=== PATIENT | female | born 1945 | race Caucasian/White ===

== ENCOUNTER 2016-12-21 12:57 | Emergency (ER) | payer OTHER, BC ==
[2016-12-21 13:05] VITALS: BMI 17.5
--- NOTE | 2016-12-21 14:02 | PDOC ---
History of Present Illness - General Chief Complaint: Lightheaded Stated Complaint: DIZZINESS, LETHARGIC Time Seen by Provider: 12/21/16 13:50 - History of Present Illness Initial Comments: 12/21/16 14:38 Patient is a 71 year old female with a history of HTN, hyponatremia who presents with dizziness. She reports sudden onset of the room spinning earlier this morning around 10am while she was sorting coins with associated nausea but no vomiting. Since then, the dizziness has improved but is still present prompting her visit to the ED. She states that her symptoms are improved at rest and worse with movement. She reports similar symptoms in the past that have resolved on their own. She denies any fevers, chills, headache, dysarthria , vision changes, chest pain, SOB, abdominal pain, or changes with bowel movements or urination. Past History - Past Medical History Allergies/Adverse Reactions: Allergies Allergy/AdvReac Type Severity Reaction Status Date / Time oxycodone HCl [From Percodan] Allergy Rash Verified 12/21/16 13:05 oxycodone terephthalate Allergy Rash Verified 12/21/16 13:05 [From Percodan] Penicillins Allergy Rash Verified 12/21/16 13:05 Home Medications: Ambulatory Orders Losartan Potassium 25 mg PO DAILY 09/12/14 Sodium Chloride 2 gm PO BID 09/12/14 Aripiprazole [Abilify] 20 mg PO DAILY 12/21/16 Cholecalciferol (Vitamin D3) [Vitamin D -] 1,000 unit PO DAILY 12/21/16 Mirtazapine [Remeron -] 30 mg PO HS 12/21/16 Vitamin B Complex [B Complex] 1 tab PO DAILY 12/21/16 Asthma: Yes Dementia: Yes HTN: Yes Hypercholesterolemia: Yes - Psycho/Social/Smoking Cessation Hx Anxiety: No Suicidal Ideation: No Smoking Status: No Smoking History: Never smoked Number of Cigarettes Smoked Daily: 0 Hx Alcohol Use: No Drug/Substance Use Hx: No Substance Use Type: None Review of Systems - Review of Systems Constitutional: No: Chills, Fever HEENTM: No: Recent change in vision, Double Vision Respiratory: No: Cough, Shortness of Breath Cardiac (ROS): No: Chest Pain, Lightheadedness, Palpitations ABD/GI: Yes: Nausea. No: Constipated, Diarrhea, Vomiting : No: Burning, Dysuria Integumentary: No: Rash Neurological: Yes: Dizziness. No: Headache, Numbness, Tingling, Weakness *Physical Exam - Vital Signs Last Vital Signs Temp Pulse Resp BP Pulse Ox 97.4 F L 51 L 20 183/76 100 12/21/16 13:02 12/21/16 13:02 12/21/16 13:02 12/21/16 13:02 12/21/16 13:02 - Physical Exam Comments: 12/21/16 14:49 General Appearance: Nourished. No Apparent Distress HEENT: EOMI, GRIFFIN. No Pharyngeal Erythema, Tonsillar Exudate, Tonsillar Erythema Respiratory/Chest: Normal Breath Sounds, Mild bilateral rales noted on asculatation. No Rhonchi, Wheezing Cardiovascular: Regular Rhythm, Regular Rate. No Murmur, Gallop/S3, Gallop/S4 Gastrointestinal/Abdominal: Normal Bowel Sounds, Soft. No Guarding, Rebound, Tenderness Extremity: Normal Capillary Refill Integumentary: Normal Color, Dry, Warm Neurologic: research associate quality control qc II-XII NML intact, Fully Oriented, Alert, Normal Mood/Affect, Normal Response, Motor Strength 5/5, Normal Finger to Nose and davalos to heel. Heart Score/ECG Review #1 ECG reviewed & interpreted by me at: 14:51 (Sinus bradycardia; T wave inversions in V1-V4;) General ECG Interpretation: Sinus Rhythm, Normal Intervals, No acute ischemic changes Compared to previous ECG there are: No significant change (09/12/14) ED Treatment Course - LABORATORY CBC & Chemistry Diagram: 12/21/16 14:27 12/21/16 14:27 Medical Decision Making - Medical Decision Making 12/21/16 14:52 Patient is a 71 year old female with a history of HTN, hyponatremia who presents with concerns for dizziness. Given the sudden onset of the patient's symptoms with associated nausea and previous related self-resolving symptoms, it is likely her symptoms are due to BPV. However we will obtain a cbc to evaluate for anemia as well as a cmp to evaluate for metabolic derangements especially given her history of hyponatremia. We will treat her with some meclazine and zofran and reevaluate. We will also obtain a UA and chest radiograph. 12/21/16 16:35 Patient reports significant improvement in her symptoms. CBC, cmp are unremarkable. Chest radiograph is unremarkable as read by our radiologist. UA is unremarkable. We feel comfortable discharging the patient at this time. We discussed the results with the patient and she is agreeable with the plan and voiced understanding. *DC/Admit/Observation/Transfer Diagnosis at time of Disposition: Dizziness - Discharge Dispostion Disposition: HOME Condition at time of disposition: Improved Admit: No - Patient Instructions Printed Discharge Instructions: DI for Vertigo Additional Instructions: Please return to the ER if you experience concerning or worsening symptoms. Please call to follow up with your primary care provider to discuss your ER visit. If you continue to experience persistent symptoms, you may need evaluation with a neurologist. This is something you can discuss with your primary care provider.
--- NOTE | 2016-12-21 14:06 | PDOC ---
Attending Attestation - Resident Resident Name: Esteban Glynn - ED Attending Attestation I have performed the following: I have examined & evaluated the patient, The case was reviewed & discussed with the resident, I agree w/resident's findings & plan, Exceptions are as noted - HPI HPI: 12/21/16 16:30 71y F hx of htn, copd, dementia, hypnatermia presents with complaint of vertigo. The pt was feeling well earlier today, she was counting coins when she dveloped room spinning vertigo without n/v, headache, palpitatoins, dysarthria, vision changes. pt endorses feeling similar sypmtoms occasionally but usually resolves spontaneously. pts exam her is unremarkable, normal cerebellar findings, normal gait, unrmarkable neuro exam.exam as documented by resident robyn. pts labs unremarakble feeling improved after meclizine suspect benign peripeheral veritog will dc to fu with his PMD - Physicial Exam PE: 12/24/16 09:33 see above - Medical Decision Making 12/24/16 09:34 see above Heart Score/ECG Review - ECG Impressions Comment:: 12/21/16 16:05 Twelve-lead EKG was performed and reviewed by me. There is normal sinus rhythm with a rate of 55 The axis is normal. qtc interval of 470 TWI in anterior leads
[2016-12-21] MEDS ORDERED: MECLIZINE HCL 25 MG TABLET (FP) PO ONE ×2 (14:13→14:46)
[2016-12-21] MEDS ORDERED: ONDANSETRON 4 MG/2 ML VIAL IVPUSH ONE (14:13)
[2016-12-21 14:35] LABS: EOSINOPHIL 2.7 % (0-4.5); MCH 31.4 pg (25.7-33.7); MCHC 33.3 g/dl (32.0-36.0); MEAN CELL VOLUME 94.3 fl (80-96); MEAN PLT VOLUME 7.8 fl (7.5-11.1); PLATELET COUNT 152 K/MM3 (134-434); RDW 13.5 % (11.6-15.6); WHITE BLOOD COUNT 5.1 K/mm3 (4.0-10.0)
[2016-12-21] MEDS ORDERED: ONDANSETRON 4 MG/2 ML VIAL ONE (14:46)
[2016-12-21] MEDS ORDERED: MECLIZINE HCL 25 MG TABLET (FP) ONE (14:46)
[2016-12-21 15:00] LABS: ALBUMIN 3.9 g/dl (3.4-5.0); ANION GAP 6 (8-16); BILIRUBIN,TOTAL 0.5 mg/dL (0.2-1.0); CALCIUM 8.7 mg/dL (8.5-10.1); CO2 31 mmol/L (21-32); CREATININE 0.8 mg/dL (0.55-1.02); GLUCOSE,RANDOM 133 mg/dL (74-106); SGOT/AST 39 U/L (15-37); SGPT/ALT 31 U/L (12-78); TOT PROT 6.6 g/dl (6.4-8.2)
[2016-12-21 15:01] LABS: ALK PHOS 59 U/L (45-117)
[2016-12-21 16:48] VITALS: BP 167/72; PULSE 58; TEMP 98.2
[2016-12-21 16:55] LABS: URINE APPEARANCE SLCLOUDY; URINE BILIRUBIN NEGATIVE (NEGATIVE); URINE BLOOD NEGATIVE (NEGATIVE); URINE COLOR YELLOW; URINE GLUCOSE (UA) NEGATIVE (NEGATIVE); URINE KETONE NEGATIVE (NEGATIVE); URINE LEUK ESTERASE NEGATIVE (NEGATIVE); URINE NITRITE NEGATIVE (NEGATIVE); URINE PROTEIN NEGATIVE (NEGATIVE); URINE UROBILINOGEN NEGATIVE mg/dL (0.2-1.0)
--- NOTE | 2016-12-22 11:13 | EKG ---
Test Reason : Blood Pressure : / mmHG Vent. Rate : 055 BPM Atrial Rate : 055 BPM P-R Int : 172 ms QRS Dur : 076 ms QT Int : 492 ms P-R-T Axes : 072 072 047 degrees QTc Int : 470 ms SINUS BRADYCARDIA T WAVE ABNORMALITY, CONSIDER ANTERIOR ISCHEMIA PROLONGED QT ABNORMAL ECG WHEN COMPARED WITH ECG OF 12-SEP-2014 20:13, NO SIGNIFICANT CHANGE WAS FOUND Confirmed by ASHWIN LYLES MD ([id number]) on 12/22/2016 11:12:56 AM Referred By: Confirmed By:ASHWIN LYLES MD
== END 2016-12-21 16:49 | disposition home or self-care (01) ==
LOC: JER 12:57
PROC: 3E033GC Introduction of Other Therapeutic Substance into Peripheral Vein, Percutaneous Approach (ICD-10-PCS; principal; 2016-12-21)
DX: H81.10 Benign paroxysmal vertigo, unspecified ear (principal); I10 Essential (primary) hypertension; E78.00 Pure hypercholesterolemia, unspecified; F03.90 Unspecified dementia, unspecified severity, without behavioral disturbance, psychotic disturbance, mood disturbance, and anxiety; Z87.09 Personal history of other diseases of the respiratory system
CPT/HCPCS: 36415; 71020-TC; 80053; 81003; 85025; 93005; 93010; 96374; 99281-25

== ENCOUNTER 2018-11-03 06:14 | Inpatient (IN) | payer OTHER, BC | END 2018-11-18 13:26 | disposition home or self-care (01) | LOC: JER 06:14 → JERBED 16:21 → J8W 19:14 ==